=== PATIENT | female | born 1955 | race Two or more races ===

== ENCOUNTER 2023-03-16 12:36 | Emergency (ER) | payer OTHER, MEDICAID ==
[~2023-03-16] VITALS: Ht 165.1 cm; Wt 72.7 kg
[2023-03-16 13:03] VITALS: BP 93/52; PULSE 67; RESP 22; O2SAT 93
[2023-03-16] MEDS ORDERED: SODIUM CHLORIDE 0.9% 1,000 ML IV ONE (13:15)
== END 2023-03-16 16:43 | disposition left against medical advice (07) ==
LOC: ER 12:36
DX: R53.1 Weakness (principal); Z86.73 Personal history of transient ischemic attack (TIA), and cerebral infarction without residual deficits